=== PATIENT | female | born 1995 | race Caucasian/White ===

== ENCOUNTER 2018-09-23 12:11 | Observation (INO) | payer BC ==
[2018-09-23] MEDS ORDERED: Lactated Ringers 1,000 ML IV ONE (12:27)
[2018-09-23 13:05] LABS: BASOPHIL % 0.2 % (0.0-0.4); Basophil (Absolute #) 0.02 (0-0.4); Eosinophil % 0.2 % (0.00-5.0); Eosinophil (Absolute #) 0.03 (0-0.5); Granulocyte Absolute (ANC) 8.96 (1.4-6.9); Granulocytes % 74.6 % (36.0-66.0); Hematocrit 34.7 % (35-47); Hemoglobin 11.4 gm/dl (12.0-16.0); Lymphocyte (Absolute #) 1.88 (1.0-4.6); Lymphocytes % 15.7 % (24.0-44.0); Mean Cell Volume 95.3 fl (78-100); Mean Corpuscular Hemoglobin 31.3 pg (26-32); Mean Corpuscular Hgb Concent. 32.9 g/dl (32-36); Mean Platelet Volume 10.5 fl (6-9.5); Monocyte (Absolute #) 1.12 (0.0-1.3); Monocytes % 9.3 % (0.0-12.0); Platelet Count 225 K/mm3 (150-450); Red Blood Count 3.64 M/mm3 (4.1-5.4); Red Cell Distribution Width 12.7 % (11.5-14.0)
[2018-09-23 13:16] LABS: ALBUMIN 3.7 g/dL (3.5-5.0); ALKALINE PHOSPHATASE 143 U/L (38-126); ANION GAP 13.4 MEQ/L (5-15); BLOOD UREA NITROGEN 5 mg/dL (7-17); CHLORIDE 106 mmol/L (98-107); Calcium 9.5 mg/dL (8.4-10.2); Carbon Dioxide 22 mmol/L (22-30); Creatinine 1 0.43 mg/dL (0.52-1.04); Glucose 124 mg/dL (74-106); Potassium 3.4 mmol/L (3.5-5.1); SGOT/AST 22 U/L (14-36); SGPT/ALT 16 U/L (0-35); SODIUM 138 mmol/L (137-145); Total Protein 6.7 g/dL (6.3-8.2); Uric Acid 4.4 mg/dL (2.6-6.0)
[2018-09-23] MEDS: TYLENOL 325 MG PO PRN ×2 (15:06→21:38)
[2018-09-24] MEDS: TYLENOL 325 MG PO PRN ×2 (01:57→12:34)
[2018-09-24 12:50] LABS: 24 HR TOT. PROTEIN CALCULATION 0.512 GM/DAY (0.04-0.15)
[2018-09-24 16:15] VITALS: BP 127/74; PULSE 103
[2018-09-24] MEDS ORDERED: VIT B6 PO SCH (22:00)
[2018-09-24] MEDS ORDERED: DOXYLAMINE SUCCINATE PO SCH (22:00)
[2018-09-24] MEDS ORDERED: NYSTOP 30 GM CREAM TOP SCH (22:00)
== END 2018-09-24 16:35 | disposition home or self-care (01) ==
LOC: OB 12:11
PROVIDERS: ADMIT Family Medicine; ATTEND Family Medicine
DX: O13.3 Gestational [pregnancy-induced] hypertension without significant proteinuria, third trimester (principal); Z3A.32 32 weeks gestation of pregnancy
CPT/HCPCS: 36415; 80053; 84156; 84550; 85025; G0378; A9270-GY

== ENCOUNTER 2018-09-27 13:24 | Observation (INO) | payer BC ==
[2018-09-27 13:58] VITALS: BP 134/78; PULSE 96
== END 2018-09-27 15:23 | disposition home or self-care (01) ==
LOC: OB 13:24
PROVIDERS: ADMIT Family Medicine; ATTEND Family Medicine
DX: Z34.03 Encounter for supervision of normal first pregnancy, third trimester (principal)
CPT/HCPCS: 59025; G0378

== ENCOUNTER 2018-09-29 11:40 | Observation (INO) | payer BC ==
[2018-09-29 11:46] LABS: Glucose NEGATIVE (NEGATIVE)
[2018-09-29] MEDS ORDERED: Celestone Soluspan 6MG/ML IM SCH (13:00)
[2018-09-29 13:21] LABS: Mean Cell Volume 95.8 fl (78-100); Mean Corpuscular Hemoglobin 30.9 pg (26-32); Mean Corpuscular Hgb Concent. 32.4 g/dl (32-36); Mean Platelet Volume 10.2 fl (6-9.5); Platelet Count 251 K/mm3 (150-450); Red Blood Count 3.55 M/mm3 (4.1-5.4); Red Cell Distribution Width 13.2 % (11.5-14.0); White Blood Count 16.4 K/mm3 (4.0-10.5)
[2018-09-29 13:44] LABS: ALBUMIN 3.7 g/dL (3.5-5.0); ALKALINE PHOSPHATASE 146 U/L (38-126); ANION GAP 11.5 MEQ/L (5-15); BLOOD UREA NITROGEN 5 mg/dL (7-17); CHLORIDE 106 mmol/L (98-107); Calcium 9.4 mg/dL (8.4-10.2); Carbon Dioxide 23 mmol/L (22-30); Glucose 86 mg/dL (74-106); Potassium 3.5 mmol/L (3.5-5.1); SGOT/AST 36 U/L (14-36); SGPT/ALT 25 U/L (0-35); SODIUM 137 mmol/L (137-145); Total Protein 6.8 g/dL (6.3-8.2)
[2018-09-29 13:52] LABS: ANISOCYTOSIS 1+; BAND 2 % (0.0-2.0); Lymphocytes 15 % (24-44); Monocyte 1 % (0.0-12.0); Neutrophils 82 % (36.0-66.0); Platelet Estimate NORMAL (NORMAL); Total Cells Counted 100
--- NOTE | 2018-09-29 15:23 | XRAY ---
Indication: Preeclampsia. Limited 2-dimensional OB ultrasound performed. Comparison: September 15, 2018. Again there is a single viable intrauterine in cephalic presentation. heart rate 149 BPM. Normal three-vessel cord. anatomy previously documented. Visualized stomach and bladder are unremarkable. Again posterior fundal placenta without abruption/previa. BPD measures 8.20 cm corresponding to 33 weeks 0 day. HC measures 29.44 cm corresponding to 32 weeks 4 days. AC measures 29.06 cm corresponding to 33 weeks 0 day. FL measures 6.69 cm corresponding to 34 weeks 3 days. TIFFANIE is 14.2 cm. Impression: Again single viable intrauterine with mean gestational age 33 weeks 2 days. Normal progression of . No new/acute findings.
--- NOTE | 2018-09-29 15:23 | XRAY ---
Indication: Preeclampsia. Ultrasound biophysical profile study was performed. There is a single intrauterine with heart rate 149 BPM. Four-quadrant TIFFANIE is 14.2 cm. 2 points given for breathing, movements, tone, and qualitative amniotic fluid volume. Impression: Total biophysical profile score is 8 out of 8.
[2018-09-29] MEDS ORDERED: Rocephin 1000 MG INJ IM ONE (15:25)
[2018-09-29] MEDS ORDERED: XYLOCAINE 1% HCL 20 ML MDV IJ ONE (15:33)
[2018-09-29 17:12] VITALS: BP 134/82; PULSE 99
== END 2018-09-29 16:25 | disposition home or self-care (01) ==
LOC: CLIN-LAKE 11:40 → OB 12:28 → UNDOADMOB 12:28 → UNDODISOB 16:25
PROVIDERS: ADMIT Family Medicine; ATTEND Family Medicine
DX: Z34.03 Encounter for supervision of normal first pregnancy, third trimester (principal)
CPT/HCPCS: 36415; 59025; 76805; 76818; 80053; 81003; 84550; 85025; 96372; G0378; J0696; J0702

== ENCOUNTER 2018-10-04 09:07 | Observation (INO) | payer BC ==
[2018-10-04 10:16] VITALS: PULSE 139
[2018-10-04 12:50] VITALS: BP 136/79
== END 2018-10-04 09:45 | disposition home or self-care (01) ==
LOC: OB 09:07
PROVIDERS: ADMIT Family Medicine; ATTEND Family Medicine
DX: Z34.03 Encounter for supervision of normal first pregnancy, third trimester (principal)
CPT/HCPCS: 59025; G0378

== ENCOUNTER 2018-10-07 12:49 | Observation (INO) | payer BC ==
[2018-10-07 13:54] LABS: Hematocrit 35.3 % (35-47); Hemoglobin 11.3 gm/dl (12.0-16.0); Mean Cell Volume 95.7 fl (78-100); Mean Corpuscular Hemoglobin 30.6 pg (26-32); Mean Platelet Volume 10.7 fl (6-9.5); Platelet Count 270 K/mm3 (150-450); Red Blood Count 3.69 M/mm3 (4.1-5.4); Red Cell Distribution Width 13.1 % (11.5-14.0); White Blood Count 18.9 K/mm3 (4.0-10.5)
[2018-10-07 14:04] LABS: ALBUMIN 3.9 g/dL (3.5-5.0); ALKALINE PHOSPHATASE 138 U/L (38-126); BLOOD UREA NITROGEN 10 mg/dL (7-17); CHLORIDE 104 mmol/L (98-107); Calcium 10.1 mg/dL (8.4-10.2); Carbon Dioxide 22 mmol/L (22-30); Creatinine 1 0.46 mg/dL (0.52-1.04); Glucose 102 mg/dL (74-106); Potassium 3.8 mmol/L (3.5-5.1); SGOT/AST 25 U/L (14-36); SGPT/ALT 18 U/L (0-35); SODIUM 138 mmol/L (137-145); Total Protein 7.1 g/dL (6.3-8.2); Uric Acid 4.1 mg/dL (2.6-6.0)
--- NOTE | 2018-10-07 14:27 | XRAY ---
Indication: Evaluate TIFFANIE. Limited OB ultrasound performed to evaluate TIFFANIE. heart rate 157 BPM. Four-quadrant TIFFANIE is 14.5 cm, previously 14.2 cm on September 29, 2018.
[2018-10-07 15:02] LABS: BAND 2 % (0.0-2.0); Eosinophil 1 % (0.00-3.0); Lymphocytes 18 % (24-44); Monocyte 6 % (0.0-12.0); Neutrophils 73 % (36.0-66.0); Total Cells Counted 100; Toxic Granulation 1+
[2018-10-07 15:03] LABS: Platelet Estimate NORMAL (NORMAL)
[2018-10-07 15:45] VITALS: BP 139/83; PULSE 100
== END 2018-10-07 14:55 | disposition home or self-care (01) ==
LOC: OB 12:49
PROVIDERS: ADMIT Family Medicine; ATTEND Family Medicine
DX: Z34.03 Encounter for supervision of normal first pregnancy, third trimester (principal)
CPT/HCPCS: 36415; 59025; 76815; 80053; 84550; 85025; G0378

== ENCOUNTER 2018-10-11 10:07 | Observation (INO) | payer BC ==
[2018-10-11 12:20] VITALS: BP 146/79; PULSE 105
== END 2018-10-11 11:25 | disposition home or self-care (01) ==
LOC: OB 10:07
PROVIDERS: ADMIT Family Medicine; ATTEND Family Medicine
DX: Z34.03 Encounter for supervision of normal first pregnancy, third trimester (principal)
CPT/HCPCS: 59025; G0378

== ENCOUNTER 2018-10-14 13:22 | Observation (INO) | payer BC ==
[2018-10-14 13:46] VITALS: BP 140/87; PULSE 108
[2018-10-14 13:47] LABS: Hematocrit 35.2 % (35-47); Hemoglobin 11.2 gm/dl (12.0-16.0); Mean Cell Volume 96.4 fl (78-100); Mean Corpuscular Hgb Concent. 31.8 g/dl (32-36); Mean Platelet Volume 10.3 fl (6-9.5); Platelet Count 268 K/mm3 (150-450); Red Blood Count 3.65 M/mm3 (4.1-5.4); Red Cell Distribution Width 13.4 % (11.5-14.0)
[2018-10-14 14:04] LABS: Mean Corpuscular Hemoglobin 30.6 pg (26-32)
[2018-10-14 14:13] LABS: ALBUMIN 3.8 g/dL (3.5-5.0); ALKALINE PHOSPHATASE 153 U/L (38-126); BLOOD UREA NITROGEN 7 mg/dL (7-17); CHLORIDE 106 mmol/L (98-107); Calcium 9.4 mg/dL (8.4-10.2); Carbon Dioxide 22 mmol/L (22-30); Creatinine 1 0.61 mg/dL (0.52-1.04); Glucose 115 mg/dL (74-106); Potassium 3.4 mmol/L (3.5-5.1); SGOT/AST 21 U/L (14-36); SGPT/ALT 16 U/L (0-35); SODIUM 139 mmol/L (137-145); Total Protein 6.9 g/dL (6.3-8.2)
--- NOTE | 2018-10-14 14:17 | XRAY ---
Indication: Preeclampsia. growth. TIFFANIE. Limited 2-dimensional OB ultrasound performed. Comparison: September 29, 2018. Again there is a single viable intrauterine in cephalic presentation. heart rate 135 BPM. anatomy previously documented. Visualized stomach and bladder are unremarkable. Again posterior fundal placenta without abruption/previa. BPD measures 8.56 cm corresponding to 34 weeks 4 days. HC measures 31.48 cm corresponding to 35 weeks 2 days. AC measures 31.48 cm corresponding to 35 weeks 3 days. FL measures 6.83 cm corresponding to 35 weeks 1 day. TIFFANIE is 12.2 cm. Impression: Again single viable intrauterine with mean gestational age 35 weeks 1 day. Normal progression of . No new/acute findings.
[2018-10-14 15:08] LABS: BAND 4 % (0.0-2.0); Lymphocytes 13 % (24-44); Monocyte 2 % (0.0-12.0); Neutrophils 81 % (36.0-66.0); Platelet Estimate NORMAL (NORMAL); Total Cells Counted 100
== END 2018-10-14 15:23 | disposition home or self-care (01) ==
LOC: OB 13:22
PROVIDERS: ADMIT Family Medicine; ATTEND Family Medicine
DX: Z34.01 Encounter for supervision of normal first pregnancy, first trimester (principal)
CPT/HCPCS: 36415; 59025; 76805; 80053; 84550; 85025; G0378

== ENCOUNTER 2018-10-18 11:11 | Observation (INO) | payer BC ==
[2018-10-18 11:45] VITALS: BP 139/76; PULSE 106
== END 2018-10-18 12:40 | disposition home or self-care (01) ==
LOC: OB 11:11
PROVIDERS: ADMIT Family Medicine; ATTEND Family Medicine
DX: Z34.03 Encounter for supervision of normal first pregnancy, third trimester (principal)
CPT/HCPCS: 59025; G0378

== ENCOUNTER 2018-10-21 05:24 | Inpatient (IN) | payer BC ==
[2018-10-21 13:33] LABS: Hematocrit 33.8 % (35-47); Hemoglobin 10.9 gm/dl (12.0-16.0); Mean Cell Volume 95.2 fl (78-100); Mean Corpuscular Hemoglobin 30.7 pg (26-32); Mean Corpuscular Hgb Concent. 32.2 g/dl (32-36); Mean Platelet Volume 10.9 fl (6-9.5); Platelet Count 296 K/mm3 (150-450); Red Blood Count 3.55 M/mm3 (4.1-5.4); Red Cell Distribution Width 13.1 % (11.5-14.0); White Blood Count 15.5 K/mm3 (4.0-10.5)
[2018-10-21 13:36] LABS: ALBUMIN 3.7 g/dL (3.5-5.0); ALKALINE PHOSPHATASE 145 U/L (38-126); ANION GAP 14.4 MEQ/L (5-15); BLOOD UREA NITROGEN 6 mg/dL (7-17); CHLORIDE 105 mmol/L (98-107); Calcium 9.7 mg/dL (8.4-10.2); Carbon Dioxide 22 mmol/L (22-30); Creatinine 1 0.48 mg/dL (0.52-1.04); Glucose 88 mg/dL (74-106); Potassium 3.5 mmol/L (3.5-5.1); SGOT/AST 24 U/L (14-36); SGPT/ALT 17 U/L (0-35); SODIUM 138 mmol/L (137-145); Total Protein 6.8 g/dL (6.3-8.2); Uric Acid 3.9 mg/dL (2.6-6.0)
--- NOTE | 2018-10-21 13:37 | XRAY ---
Indication: Evaluate TIFFANIE. Limited OB ultrasound performed to evaluate TIFFANIE. Four-quadrant TIFFANIE is 13.2 cm, previously 12.2 cm on October 14, 2018.
[2018-10-21 15:10] LABS: BAND 2 % (0.0-2.0); Lymphocytes 10 % (24-44); Monocyte 5 % (0.0-12.0); Neutrophils 83 % (36.0-66.0); Platelet Estimate NORMAL (NORMAL); Polychromasia 1+; Total Cells Counted 100
[2018-10-21] MEDS ORDERED: BRETHINE 1 MG/ML SQ PRN (19:51)
[2018-10-21] MEDS: TYLENOL 325 MG PO PRN (20:03)
[2018-10-21 20:49] LABS: Appearance CLEAR (CLEAR); Bilirubin NEGATIVE (NEGATIVE); Blood SMALL Ery/ul (0-5); Glucose NEGATIVE (NEGATIVE); Ketones SMALL (NEGATIVE); Leukocyte Esterase NEGATIVE (NEGATIVE); Nitrite NEGATIVE (NEGATIVE); Protein,Urine Dip NEGATIVE (Negative); Urobilinogen NEGATIVE mg/dL (0-1)
[2018-10-21 20:52] LABS: Mean Cell Volume 94.9 fl (78-100); Mean Corpuscular Hgb Concent. 32.4 g/dl (32-36); Platelet Count 309 K/mm3 (150-450); Red Cell Distribution Width 13.3 % (11.5-14.0); White Blood Count 19.8 K/mm3 (4.0-10.5)
[2018-10-21 20:56] LABS: Mean Corpuscular Hemoglobin 30.7 pg (26-32)
[2018-10-21 20:59] LABS: ALBUMIN 4.2 g/dL (3.5-5.0); ALKALINE PHOSPHATASE 167 U/L (38-126); BLOOD UREA NITROGEN 6 mg/dL (7-17); CHLORIDE 103 mmol/L (98-107); Calcium 9.8 mg/dL (8.4-10.2); Carbon Dioxide 20 mmol/L (22-30); Creatinine 1 0.45 mg/dL (0.52-1.04); Glucose 141 mg/dL (74-106); Potassium 3.4 mmol/L (3.5-5.1); SGOT/AST 29 U/L (14-36); SODIUM 138 mmol/L (137-145); Total Protein 7.7 g/dL (6.3-8.2)
[2018-10-21 21:00] LABS: INR 1.07 (0.8-3.0)
[2018-10-21 21:04] LABS: SGPT/ALT 30 U/L (0-35)
[2018-10-21] MEDS: Magnesium Sulfate 40 Gm/1000 Ml H2O Premix*** 1,000 ML IV SCH (21:31)
[2018-10-21] MEDS: Lactated Ringers 1,000 ML IV SCH (21:32)
[2018-10-21] MEDS ORDERED: Cervidil 10 MG VAG SCH (22:00)
[2018-10-21 22:15] LABS: Amphetamine,Urine NEGATIVE (NEGATIVE); Barbiturate,Urine NEGATIVE (NEGATIVE); Benzodiazepine,Urine NEGATIVE (NEGATIVE); Cocaine,Urine NEGATIVE (NEGATIVE); Methadone,Urine NEGATIVE (NEGATIVE); Opiate,Urine NEGATIVE (NEGATIVE); PCP,Urine NEGATIVE (NEGATIVE); THC,Urine NEGATIVE (NEGATIVE)
[2018-10-22] MEDS: TYLENOL 325 MG PO PRN ×3 (01:10→11:40)
[2018-10-22] MEDS ORDERED: PITOCIN 30 UNITS/ LR 500 ML 500 ML IV SCH ×2 (06:00→10:00)
[2018-10-22] MEDS: Zofran 4 MG/2 ML VIAL IV PRN ×2 (06:13→19:36)
[2018-10-22] MEDS ORDERED: Calcium Gluconate 10% 1000 MG IV ONE (08:20)
[2018-10-22] MEDS ORDERED: OMNIPEN 2 GM / NACL 100ML 100 ML IV ONE (10:00)
[2018-10-22] MEDS ORDERED: XYLOCAINE 1% HCL 20 ML MDV IJ PRN (10:00)
[2018-10-22] MEDS: Lactated Ringers 1,000 ML IV SCH (11:33)
[2018-10-22] MEDS ORDERED: Lactated Ringers 1,000 ML IV ONE ×2 (13:30→15:49)
[2018-10-22] MEDS ORDERED: OMNIPEN 1GM / NaCl 100ML 100 ML IV SCH (14:00)
[2018-10-22] MEDS: Magnesium Sulfate 40 Gm/1000 Ml H2O Premix*** 1,000 ML IV SCH (14:35)
[2018-10-22] MEDS ORDERED: BICITRA 30 ML CUP PO SCH (15:00)
[2018-10-22] MEDS ORDERED: Reglan 10 MG/2 ML IV SCH (15:00)
[2018-10-22] MEDS ORDERED: CEFAZOLIN 2 GM-D5W BAG** 2 GM/50 ML ML IV SCH (15:00)
[2018-10-22] MEDS ORDERED: Pepcid 20 MG VIAL IV SCH (15:00)
[2018-10-22 15:36] LABS: INR 1.02 (0.8-3.0)
[2018-10-22 15:38] LABS: PTT 25.7 SECONDS (25.3-37.0)
[2018-10-22 16:23] LABS: ABO TYPING A; Antibody Screen NEGATIVE (NEGATIVE); RH TYPING POSITIVE
[2018-10-22] MEDS ORDERED: Marcaine Spinal Ampul IJ ONE (16:39)
[2018-10-22] MEDS ORDERED: Marcaine Mpf 0.5% Vial 30 Ml IV ONE (16:39)
[2018-10-22] MEDS ORDERED: Astramorph-Pf 5 MG/10 ML IV ONE (16:39)
[2018-10-22] MEDS ORDERED: PHENYLEPHRINE HCL IV ONE (16:39)
[2018-10-22] MEDS ORDERED: Pitocin 10 UNITS/ML IV ONE (16:39)
[2018-10-22] MEDS ORDERED: Xylocaine-Mpf 2% 5 Ml Vial IJ ONE (16:39)
[2018-10-22] MEDS ORDERED: BENADRYL 50 MG/ML IV PRN (17:53)
[2018-10-22] MEDS ORDERED: PERCOCET TABLET 5/325MG PO PRN (17:53)
[2018-10-22] MEDS ORDERED: MORPHINE SULFATE 2 MG INJ IV PRN (17:53)
[2018-10-22] MEDS ORDERED: HOLD NARCOTIC ANALGESICS AND SEDATIVES X24 HR MC PRN (17:53)
[2018-10-22] MEDS ORDERED: Mylicon 80MG PO PRN (17:53)
[2018-10-22] MEDS ORDERED: Narcan 0.4 MG/ML IV PRN (17:53)
[2018-10-22] MEDS ORDERED: Nubain 10 MG/ML IV PRN (17:53)
[2018-10-22] MEDS ORDERED: NORCO 5/325 MG PO PRN (17:53)
[2018-10-22] MEDS ORDERED: LANSINOH 40 GM TOP PRN (17:53)
[2018-10-22] MEDS ORDERED: Dulcolax 10 MG SUPP PR PRN (17:53)
[2018-10-22] MEDS ORDERED: CLARITIN 10 MG PO PRN (17:53)
[2018-10-22] MEDS ORDERED: Compazine 10 MG/2 ML IV ONE (21:21)
[2018-10-22] MEDS ORDERED: Phenergan 25 MG INJ IM PRN (21:22)
[2018-10-22] MEDS: Dextrose 5%-Lr IV Solution 1000 ML 1,000 ML IV SCH (21:43)
[2018-10-22] MEDS: Colace 100 MG PO SCH (22:00)
[2018-10-23 04:14] LABS: BASOPHIL % 0.1 % (0.0-0.4); Basophil (Absolute #) 0.02 (0-0.4); Eosinophil % 0.1 % (0.00-5.0); Eosinophil (Absolute #) 0.02 (0-0.5); Granulocyte Absolute (ANC) 15.58 (1.4-6.9); Granulocytes % 81.5 % (36.0-66.0); Hematocrit 31.5 % (35-47); Hemoglobin 10.3 gm/dl (12.0-16.0); Lymphocyte (Absolute #) 2.21 (1.0-4.6); Lymphocytes % 11.6 % (24.0-44.0); Mean Cell Volume 94.3 fl (78-100); Mean Corpuscular Hemoglobin 30.8 pg (26-32); Mean Corpuscular Hgb Concent. 32.7 g/dl (32-36); Mean Platelet Volume 10.5 fl (6-9.5); Monocyte (Absolute #) 1.29 (0.0-1.3); Monocytes % 6.7 % (0.0-12.0); Platelet Count 311 K/mm3 (150-450); Red Blood Count 3.34 M/mm3 (4.1-5.4); Red Cell Distribution Width 13.3 % (11.5-14.0); White Blood Count 19.1 K/mm3 (4.0-10.5)
[2018-10-23] MEDS: MOTRIN 400 MG PO PRN ×3 (07:00→22:15)
[2018-10-23] MEDS ORDERED: MOTRIN 400 MG ONE (07:00)
[2018-10-23] MEDS: FERREX 150 PO SCH (11:03)
[2018-10-23] MEDS: Colace 100 MG PO SCH ×2 (11:03→22:16)
[2018-10-23] MEDS: Dextrose 5%-Lr IV Solution 1000 ML 1,000 ML IV SCH (11:03)
[2018-10-23] MEDS ORDERED: THERAGRAN MULTIVITAMIN PO SCH (12:00)
[2018-10-23] MEDS: Magnesium Sulfate 40 Gm/1000 Ml H2O Premix*** 1,000 ML IV SCH (13:09)
[2018-10-23] MEDS ORDERED: XYLOCAINE 1% HCL 20 ML MDV IJ PRN (16:09)
[2018-10-23] MEDS: TYLENOL 325 MG PO PRN ×2 (18:37→23:50)
[2018-10-23 23:04] VITALS: O2SAT 97
[2018-10-24] MEDS: MOTRIN 400 MG PO PRN (04:53)
[2018-10-24] MEDS: FERREX 150 PO SCH (09:32)
[2018-10-24] MEDS: Colace 100 MG PO SCH (09:32)
[2018-10-24] MEDS ORDERED: PRENATAL VITS W CA FE FA PO SCH (10:00)
[2018-10-24] MEDS ORDERED: GUM PO SCH (10:00)
--- NOTE | 2018-10-24 13:41 | PCM.DS ---
Discharge Summary Date of Admission: 10/22/18 05:24 Admitting Physician: ARON BRITTON Consults: Consults on Case 10/21/18 20:08 Notify Physician ROUTINE 10/22/18 14:57 Notify Anesthesia Provider ROUTINE 10/22/18 17:56 Notify Anesthesia Provider PRN Primary Care Provider: ARON BRITTON Allergies Allergies No Known Drug Allergies Allergy (Verified 10/21/18 22:29) Hospital Summary - Hospital Course Hospital Course: 23yo induced at 36 2/7 wks ega due to pre-eclampsia, had no progression so had primary on 10/22, was on mgso4 x 24 hours, has had good diuresis since delivery and has been normotensive, pain well controlled on motrin and tylenol only. she is her and is well bonded. - Vitals & Intake/Output Vital Signs: Vital Signs Temperature 98.3 F 10/24/18 08:00 Pulse Rate 77 10/24/18 08:00 Respiratory Rate 18 10/24/18 08:00 Blood Pressure 135/60 10/24/18 08:00 O2 Sat by Pulse Oximetry 97 10/23/18 20:00 Intake & Output: Intake & Output 10/22/18 10/23/18 10/24/18 10/25/18 11:59 11:59 11:59 11:59 Intake Total 860 4804 2265 Output Total 2900 5000 1725 Balance -0 -196 540 Weight 91.626 kg 91.626 kg - Lab Result Diagrams: 10/23/18 04:00 10/21/18 20:34 Lab Results-Last 24 Hrs: Lab Results-Last 24 Hours 10/23/18 Range/Units 15:45 Magnesium 5.4 H* (1.6-2.3) mg/dL Micro Results-Entire Visit: Microbiology 10/21/18 22:00 Urine Culture - Final Catherized NO GROWTH - Procedures and Test Procedures and Tests throughout Hospitalization: Therapy Orders & Screens 10/22/18 17:05 Standby Routine Comment: Diagnosis: Labor Patient Discharge Exam General Appearance: no apparent distress, alert, obese Respiratory Exam: normal breath sounds, lungs clear, No respiratory distress Cardiovascular Exam: regular rate/rhythm, normal heart sounds Gastrointestinal/Abdomen Exam: soft, other (incision c/d/i), No tenderness, No mass Extremity Exam: other (DTR 2+ BLE, no clonus), No pedal edema, No swelling Final Diagnosis/Problem List - Final Discharge Diagnosis/Problem (1) delivery delivered Current Visit: Yes Status: Acute Assessment & Plan: doing great, discussed restrictions. continue vitamin at home, pain well controlled with motrin and tylenol, patient declines anything more for pain. (2) () Current Visit: Yes Status: Acute Assessment & Plan: breast pump ordered per pt request - Discharge Disposition: Home, Self-Care Condition: Stable Prescriptions: New Breast Pump 1 each UD #1 each Continue Vits W-Ca,Fe,FA(<1Mg) [] 1 gum PO DAILY Discontinued Doxylamine Succinate/Vit B6 [Mayco Parkinson 10-10 mg Tablet] 1 tab PO HS Follow up with: ARON BRITTON [Primary Care Provider] - 1 Week
[2018-10-24 16:46] VITALS: BP 135/77; PULSE 95
--- NOTE | 2018-10-25 10:54 | OP ---
SURGERY DATE/TIME: 10/22/2018 1609 PREOPERATIVE DIAGNOSES: 1) Preeclampsia. 2) Failure to progress in labor. POSTOPERATIVE DIAGNOSES: 1) Preeclampsia. 2) Failure to progress in labor. PROCEDURE: Primary low transverse section. SURGEON: Momo Trevino M.D. ANESTHESIA: Spinal by Deangelo Ha CRNA. ESTIMATED BLOOD LOSS: 300 cc. IV FLUIDS: 500 cc of crystalloid. URINE OUTPUT: 200 cc clear straw-colored urine. SPECIMEN: Placenta was sent for pathology. DESCRIPTION OF PROCEDURE: The patient had been under the care of Dr. Connell for her , 36 weeks and 2 days estimated gestational age with confirmed preeclampsia. She was started on magnesium drip and brought in for induction with no progression. Therefore taken to surgery for primary section due to preeclampsia and failure to progress. I discussed risks, benefits and alternatives of section with her and her . She consented to proceed. She went to the operating room and underwent spinal anesthesia. Usual prep and drape was performed. After adequate level of anesthesia was assessed, a low transverse skin incision was made by knife and carried down through the subcutaneous fat to the level of the fascia. Fascia was nicked on both sides of the midline and extended in horizontal fashion using curved Milner scissors. Superior free edge of the fascia was then grasped with [place] clamps and the underlying rectus muscles were resected free. The same was repeated inferiorly. Next, the peritoneal cavity was opened and extended in horizontal fashion. A bladder flap was then created and reflected over the lower uterine segment. Horizontal uterine incision was made by knife and carried down to the level of the amniotic membranes which were carefully artificially ruptured. Clear fluid was encountered. A viable male infant was delivered from the vertex presentation with loose nuchal around the shoulder reduced. Oropharynx and nares were bulb suctioned free. The cord was clamped and cut and Dr. Connell robed and scrubbed at that time to care for the baby. The uterus was exteriorized and the placenta was manually extracted from the uterine cavity. The uterine cavity was then sponge curetted clean with lap sponge and the uterine incision was closed with #1 chromic in a running locked fashion. Good closure and good hemostasis were achieved. Posterior cul-de-sac was wiped free of blood and clot with moist lap sponge. The uterus was returned to the peritoneal cavity. Lateral gutters were wiped free of blood and clot. Again, the uterine incision inspected and noted to be hemostatic with good closure. Next, the fascia was closed with 0 Vicryl in running fashion with good closure and good hemostasis were achieved. Subcutaneous fat irrigated with warm sterile saline and any areas of bleeding were cauterized with electrocautery. Finally the skin layer was closed with 4-0 undyed Vicryl in a running subcuticular fashion. Steri-Strips and occlusive dressing were placed over the incision. Patient was transferred to the recovery room in good condition.
== END 2018-10-24 16:40 | disposition home or self-care (01) | DRG 788 ==
LOC: OB 05:24 → OBSVTOIN 10-22 05:24
PROVIDERS: ADMIT Family Medicine; ATTEND Family Medicine
PROC: 10D00Z1 Extraction of Products of Conception, Low, Open Approach (ICD-10-PCS; principal; 2018-10-22)
DX: O14.94 Unspecified pre-eclampsia, complicating childbirth (principal); Z3A.39 39 weeks gestation of pregnancy; Z37.0 Single live birth; O32.4XX0 Maternal care for high head at term, not applicable or unspecified; E05.90 Thyrotoxicosis, unspecified without thyrotoxic crisis or storm; D72.829 Elevated white blood cell count, unspecified
CPT/HCPCS: 36415; 62322; 64488; 76815; 76937; 76942; 80053; 80307; 81001; 81003; 83735; 84550; 85025; 85027; 85610; 85730; 86850; 86900; 86901; 87086; 88307; 94799; G0378; J0290; J0610; J0690; J2274; J2370; J2405; J2590; A9270-GY